=== PATIENT | female | born 1955 | race Caucasian/White ===

== ENCOUNTER → 2019-10-01 | Outpatient (CLI) | payer MEDICARE, OTHER ==
--- NOTE | 2019-10-01 14:34 | KCIC ---
MR of the left knee HISTORY: Left knee pain for 3 weeks. Twisting injury. TECHNIQUE: Routine multiplanar sequences are obtained. FINDINGS: No evidence of medial or lateral meniscal tear. Anterior and posterior cruciate ligaments are intact. Medial collateral ligament intact. Iliotibial band unremarkable. Fibular collateral ligament, biceps femoris tendon and popliteus tendon are intact. Extensor mechanism is intact. No significant joint effusion. Moderate chondromalacia of the patella. Medial compartment articular cartilage is intact. Chondromalacia at the posterior lateral tibial plateau at least moderate. No acute fracture. No aggressive bone destruction. No significant Branch's cyst. IMPRESSION: 1. No evidence of meniscal tear or internal derangement. 2. Degenerative joint disease. Electronically signed by: Milo Gant MD (10/01/2019 2:32 PM) [id number]
== END | disposition home or self-care (01) ==
LOC: KCIC MRI 08:16
PROVIDERS: ATTEND Family Medicine
DX: M22.42 Chondromalacia patellae, left knee (principal); M17.12 Unilateral primary osteoarthritis, left knee; Z98.51 Tubal ligation status
CPT/HCPCS: 73721